=== PATIENT | male | born 1990 | race Caucasian/White ===

== ENCOUNTER 2016-12-29 17:30 | Emergency (ER) | payer BC, OTHER ==
--- NOTE | 2016-12-29 18:48 | EDM.PDOC ---
ED HPI GENERAL MEDICAL PROBLEM - General Chief Complaint: Chest Pain Stated Complaint: RANDOM CHEST PAIN Time Seen by Provider: 12/29/16 18:36 Source of Information: Reports: Patient History Limitations: Reports: No Limitations - History of Present Illness INITIAL COMMENTS - FREE TEXT/NARRATIVE: 26-year-old male presents for evaluation and treatment of chest pain. Patient reports episodic chest pains. Reports they first started her on all 0515 this morning. States he's had them periodically throughout the day. Last proximal right 45 seconds. He describes them as annoying discomfort. He states that he loses his breath when these occur. He reports some lightheadedness earlier but states this is now resolved. No dizziness, syncope, fevers, cough, abdominal pain. Patient states he never had anything like this before. Reports he first started occurring while he was at work. 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 Patient does not have any cardiac history himself. He is not aware of any cardiac family history at a young age. Reports he is healthy with no known medical conditions. He does smoke about half pack a day. Patient also reports a nosebleed this morning. Reports that it occurred around 0500 this morning. He states he does not get frequent nosebleeds and was concerned by this. - Related Data Allergies Allergy/AdvReac Type Severity Reaction Status Date / Time No Known Allergies Allergy Verified 12/29/16 17:41 Home Meds: Home Meds . [No Known Home Meds] 12/29/16 [History] Past Medical History HEENT History: Reports: Impaired Vision Respiratory History: Reports: Asthma Gastrointestinal History: Reports: GERD Musculoskeletal History: Reports: Fracture Other Musculoskeletal History: right lower leg Social & Family History - Family History Family Medical History: Noncontributory - Tobacco Use Smoking Status *Q: Current Every Day Smoker Years of Tobacco use: 10 Packs/Tins Daily: 0.5 - Caffeine Use Caffeine Use: Reports: Coffee - Recreational Drug Use Recreational Drug Use: No ED ROS GENERAL - Review of Systems Review Of Systems: See Below Constitutional: Denies: Fever Respiratory: Reports: Shortness of Breath (episodic wiht chest discomfort). Denies: Cough Cardiovascular: Reports: Lightheadedness (earlier now resolved). Denies: Chest Pain (reports discomfort but denies pain) GI/Abdominal: Denies: Abdominal Pain, Nausea, Vomiting Neurological: Denies: Dizziness, Syncope ED EXAM, GENERAL - Physical Exam Exam: See Below Exam Limited By: No Limitations General Appearance: Alert, WD/WN, No Apparent Distress Ears: Normal External Exam Nose: Normal Inspection Throat/Mouth: Normal Inspection, Normal Lips, Normal Voice, No Airway Compromise Respiratory/Chest: No Respiratory Distress, Lungs Clear, Normal Breath Sounds Cardiovascular: Normal Peripheral Pulses, Regular Rate, Rhythm, No Murmur GI/Abdominal: Normal Bowel Sounds, Soft, Non-Tender Neurological: Alert, Oriented, Normal Cognition Psychiatric: Normal Affect, Normal Mood Skin Exam: Warm, Dry, Normal Color EKG INTERPRETATION EKG Date: 12/29/16 Time: 17:45 Rhythm: NSR Rate (Beats/Min): 85 [place]: Normal P-Wave: Present QRS: Normal ST-T: Normal QT: Normal EKG Interpretation Comments: NSR at 85 bpm. No acute changes. Reviewed by myself and Dr. Collins. Course - Vital Signs Last Recorded V/S: Last Vital Signs Temp 36.2 C 12/29/16 17:36 Pulse 79 12/29/16 20:10 Resp 15 12/29/16 17:36 BP 106/76 12/29/16 20:10 Pulse Ox 95 12/29/16 17:36 - Orders/Labs/Meds Orders: Active Orders 24 hr Category Date Time Status Cardiac Monitoring [RC] . DIRECTED Care 12/29/16 18:44 Active EKG 12 Lead [EKG Documentation Completion] [RC] STAT Care 12/29/16 18:44 Active Labs: Laboratory Tests 12/29/16 12/29/16 Range/Units 19:05 19:05 WBC 9.02 (4.23-9.07) K/mm3 RBC 5.14 (4.63-6.08) M/mm3 Hgb 15.5 (13.7-17.5) gm/L Hct 45.9 (40.1-51.0) % MCV 89.3 (79.0-92.2) fl MCH 30.2 (25.7-32.2) pg MCHC 33.8 (32.2-35.5) g/dl RDW Std Deviation 40.5 (35.1-43.9) fL Plt Count 223 (163-337) K/mm3 MPV 10.7 (9.4-12.3) fl Neut % (Auto) 54.3 (34.0-67.9) % Lymph % (Auto) 34.7 (21.8-53.1) % [place] % (Auto) 8.4 (5.3-12.2) % Eos % (Auto) 2.0 (0.8-7.0) Baso % (Auto) 0.3 (0.1-1.2) % Neut # (Auto) 4.89 (1.78-5.38) K/mm3 Lymph # (Auto) 3.13 (1.32-3.57) K/mm3 [place] # (Auto) 0.76 (0.30-0.82) K/mm3 Eos # (Auto) 0.18 (0.04-0.54) K/mm3 Baso # (Auto) 0.03 (0.01-0.08) K/mm3 Sodium 140 (136-145) mEq/L Potassium 3.7 (3.5-5.1) mEq/L Chloride 104 (98-107) mEq/L Carbon Dioxide 28 (21-32) mEq/L Anion Gap 11.7 (5-15) BUN 12 (7-18) mg/dL Creatinine 1.0 (0.7-1.3) mg/dL Est Cr Clr Drug Dosing 137.43 mL/min Estimated GFR (MDRD) > 60 (>60) mL/min BUN/Creatinine Ratio 12.0 L (14-18) Glucose 95 (74-106) mg/dL Calcium 9.2 (8.5-10.1) mg/dL Total Bilirubin 0.6 (0.2-1.0) mg/dL AST 16 (15-37) U/L ALT 22 (16-63) U/L Alkaline Phosphatase 65 (46-116) U/L Troponin I < 0.017 (0.00-0.056) ng/mL Total Protein 7.6 (6.4-8.2) g/dl Albumin 4.1 (3.4-5.0) g/dl Globulin 3.5 gm/dL Albumin/Globulin Ratio 1.2 (1-2) Lipase 88 (73-393) U/L TSH 3rd Generation 3.054 (0.358-3.74) uIU/mL - Radiology Interpretation Free Text/Narrative:: chest [address] Currie: 1. Questionable left upper lung nodule. Apical lordotic view is recommended to further evaluate. 2. Nothing acute is otherwise seen on 2 view chest x-ray. - Re-Assessments/Exams Free Text/Narrative Re-Assessment/Exam: 12/29/16 20:29 I reviewed the chest x-ray, EKG and lab results with the patient. I will have him follow-up with Dr. Gibson later this week or early next week for recheck of his symptoms and for apical lordic views to further evaluate the left upper lung nodule. Will discharge home. Discharge instructions as documented. Departure - Departure Time of Disposition: 20:30 Disposition: Home, Self-Care 01 Condition: Good Clinical Impression: Chest wall pain Instructions: Chest Wall Pain, [id number] Referrals: PCP,None [Primary Care Provider] - Forms: ED Department Discharge, ED Return to Work/School Form Additional Instructions: [id number] Tylenol or Motrin as needed for pain relief. Follow up with Dr. Gibson at the [facility] [place] this week or early next week. Please call [phone] to schedule an appointment for him. I recommend follow-up for the chest discomfort as well as recommend obtaining additional chest x-rays for the lung nodule. Please return to the ER if your symptoms change or worsen. - My Orders Last 24 Hours: My Active Orders 12/29/16 18:44 Cardiac Monitoring [RC] . DIRECTED EKG 12 Lead [EKG Documentation Completion] [] STAT - Assessment/Plan Last 24 Hours: My Active Orders 12/29/16 18:44 Cardiac Monitoring [RC] . DIRECTED EKG 12 Lead [EKG Documentation Completion] [RC] STAT
--- NOTE | 2016-12-29 19:46 | CR ---
Chest: 2 views of the chest were obtained. Comparison: No previous chest x-ray. Heart size and mediastinum are within normal limits. Questionable nodule within the left upper chest is seen. Lungs otherwise are clear. Bony structures are unremarkable. Impression: 1. Questionable left upper lung nodule. Apical lordotic view is recommended to further evaluate. 2. Nothing acute is otherwise seen on 2 view chest x-ray. Diagnostic code #9
== END 2016-12-29 20:40 | disposition home or self-care (01) ==
LOC: JD.ED 17:30
DX: R07.89 Other chest pain (principal); F17.210 Nicotine dependence, cigarettes, uncomplicated
CPT/HCPCS: 36415; 71020; 71020-26; 80053; 83690; 84443; 84484; 85025; 93005; 99285; 99285-25

== ENCOUNTER 2021-05-05 22:28 | Emergency (ER) | payer BC ==
[2021-05-05] MEDS ORDERED: Ketorolac 15 MG/ML SDV IVPUSH ONE (23:31)
== END 2021-05-06 00:18 | disposition home or self-care (01) ==
LOC: JD.ED 22:28
DX: R10.13 Epigastric pain (principal); J45.909 Unspecified asthma, uncomplicated; K21.9 Gastro-esophageal reflux disease without esophagitis
CPT/HCPCS: 36415; 71045; 80053; 84484; 85025; 85379; 85610; 93005; 96374; 99284; J1885; 93010; 99285